=== PATIENT | female | born 1985 | race Two or more races ===

== ENCOUNTER 2016-09-01 20:03 | Emergency (ER) | payer SELFPAY ==
[~2016-09-01] VITALS: Ht 134.6 cm; Wt 68.0 kg
[2016-09-01 20:20] VITALS: BP 120/84
[2016-09-01] MEDS ORDERED: Oxycodone/Acetaminophen 5-325 ORAL ONE (20:45)
[2016-09-01 21:22] LABS: APPEARANCE,URINE VERY CLOUDY; KETONES,URINE NEGATIVE (NEGATIVE); LEUKOCYTE ESTERASE ,URINE NEGATIVE (NEGATIVE); NITRITE,URINE NEGATIVE (NEGATIVE); PH,URINE 8 (4.5-8.0); PROTEIN,URINE NEGATIVE (NEGATIVE); UROBILINOGEN,URINE NORMAL MG/DL (0.0-1.0)
[2016-09-01 21:37] LABS: RBC,URINE 0 /HPF (0 - 2); SQUAMOUS EPITHELIAL CELL,UR FEW /LPF (NONE/OCC); WBC,URINE 0-2 /HPF (0 - 2)
[2016-09-01 21:38] LABS: AMORPHOUS SEDIMENT,UR MANY /LPF
--- NOTE | 2016-09-01 21:59 | Emergency Room Report ---
History of Present Illness General Chief Complaint: Lower Back Pain or Injury Source: Patient, Friend Present Illness HPI Patient slipped and fell last week. When this happened to her several months ago the back pain resolved. She never went to get studies done. This time the back pain persists and is severe. It's worse on the right-hand side and radiates down the buttock area and sometimes into her thigh. There is no weakness or numbness. At times when she has muscle spasms it makes the pain worse. The patient has polycystic ovary disease and has not had a period since January. She does not believe she is at this time. No fevers, saddle numbness, blood thinners, oncologic problems, in lateral weakness or numbness. Allergies: Coded Allergies: No Known Allergies (Unverified , 09/01/16) Patient History Past Medical History: see triage record Social History Narrative at home Last Menstrual Period: 2015; Now: No Reviewed Nursing Documentation: PMH: Agreed, PSxH: Agreed Review of Systems All Other Systems: negative except mentioned in HPI Physical Exam Vital Signs Date Time Temp Pulse Resp B/P Pulse Ox O2 Delivery O2 Flow Rate FiO2 09/01/16 20:15 98.1 96 18 124/83 96 Room Air Sp02 EP Interpretation: reviewed, normal General Appearance: well appearing, no apparent distress, GCS 15 Head: normocephalic Eyes: bilateral eye PERRL, bilateral eye normal inspection ENT: moist mucus membranes Neck: full range of motion, supple Respiratory: lungs clear, normal breath sounds Cardiovascular #1: regular rate, rhythm Cardiovascular #2: 2+ radial (R) Gastrointestinal: normal inspection, normal bowel sounds, non tender, no mass, non-distended Musculoskeletal: gait/station normal, other - lumbar tenderness bilat, worse R , paraspinous spasm, no bone tenderness, laying on side. SLR + for increased pain, no sciatic pain, no deformity Neurologic: alert, oriented x3, motor strength/tone normal, DTRs symmetric, sensory intact, cerebellar normal, speech normal Psychiatric: mood/affect normal Reflexes: 2+ knee (R), 2+ knee (L), 2+ ankle (R), 2+ ankle (L) Skin: normal inspection, warm/dry Medical Decision Making Diagnostic Impression: Primary Impression: Back contusion Qualified Codes: S20.229A - Contusion of unspecified back wall of thorax, initial encounter ER Course Patient presents post slip and fall. Patient with different pain pattern from before. No red flag sy, but x-rays indicated as well as analgesics. Abnormal period most likely due to polycystic ovary disease. Need to exclude UTI. UA negative. Xrays with DJD L5 S1, no fx or mal=alignment. Patient improved with increased ROM and able to ambulate. Patient stable for outpatient observation and treatment. Laboratory Tests Test 09/01/16 20:55 Urine Color Yellow Urine Appearance Very cloudy Urine pH 8 (4.5-8.0) Urine Specific Graham 1.015 (1.005-1.035) Urine Protein Negative (NEGATIVE) Urine Glucose (UA) Negative (NEGATIVE) Urine Ketones Negative (NEGATIVE) Urine Occult Blood Negative (NEGATIVE) Urine Nitrite Negative (NEGATIVE) Urine Bilirubin Negative (NEGATIVE) Urine Urobilinogen Normal MG/DL (0.0-1.0) Urine Leukocyte Esterase Negative (NEGATIVE) Urine RBC 0 /HPF (0 - 2) Urine WBC 0-2 /HPF (0 - 2) Urine Squamous Epithelial Cells Few /LPF (NONE/OCC) Urine Amorphous Sediment Many /LPF (NONE) H Urine Bacteria None /HPF (NONE) Urine HCG, Qualitative Negative Other X-Ray Diagnostic Results Other X-Ray Diagnostic Results : X-Ray Ordered: ls spine EP Interpretation: Yes Findings: no fractures, no dislocation, no soft tissue swelling, other - L5 S1 narrow Number of Views: 3 Last Vital Signs Date Time Temp Pulse Resp B/P Pulse Ox O2 Delivery O2 Flow Rate FiO2 09/01/16 23:00 98.2 84 17 118/79 100 Room Air Status: improved Disposition: HOME, SELF-CARE Condition: Improved Scripts Cyclobenzaprine Hcl* (FLEXERIL*) 10 Mg Tablet 10 MG ORAL TID Y for Muscle Spasm, #10 TAB Prov: Maurice Esparza M.D. 09/01/16 Ibuprofen* (MOTRIN*) 600 Mg Tablet 600 MG ORAL Q6H Y for For Pain, #20 TAB Prov: Maurice Esparza M.D. 09/01/16 Tramadol Hcl* (ULTRAM*) 50 Mg Tablet 50 MG ORAL Q6H Y for For Pain, #10 TAB 0 Refills Prov: Maurice Esparza M.D. 09/01/16 Maurice Esparza M.D. Sep 01, 2016 21:59
[2016-09-01] MEDS ORDERED: TRAMADOL HCL50 MG ORAL (22:50)
[2016-09-01] MEDS ORDERED: IBUPROFEN600 MG ORAL (22:50)
[2016-09-01] MEDS ORDERED: CYCLOBENZAPRINE10 MG ORAL (22:50)
[2016-09-01 23:00] VITALS: BP 118/79
--- NOTE | 2016-09-02 08:59 | Diagnostic Imaging Report ---
Indications: Trauma, low back pain. Technique: 3 views of the lumbar spine Findings: Comparison: None Vertebral alignment is intact. No fracture, lytic destruction, or other acute changes are demonstrated. No degenerative changes, deformity, or other chronic changes are demonstrated. IMPRESSION: Negative lumbar spine series.
== END 2016-09-01 23:00 | disposition home or self-care (01) ==
LOC: EMR 20:35
DX: S30.0XXA Contusion of lower back and pelvis, initial encounter (principal); W01.0XXA Fall on same level from slipping, tripping and stumbling without subsequent striking against object, initial encounter; Y93.9 Activity, unspecified; Y99.9 Unspecified external cause status
CPT/HCPCS: 72020; 81003; 81025; 99284